=== PATIENT | female | born 1975 | race Caucasian/White ===

== ENCOUNTER 2016-11-02 04:07 | Emergency (ER) | payer BC ==
[~2016-11-02] VITALS: Ht 162.6 cm; Wt 103.1 kg
[~2016-11-02 04:07] MED LIST: CLON0.5T23 PO; LEVO50TA72 PO; METF-186 PO; NORG1TAB4 PO; RANI-198 PO
--- OUTSIDE RECORDS SUMMARY | 2016-11-02 04:11 | XMS REPORT ---
Author Author Paul Ferguson Organization [employer] Address Unknown Phone Unavailable Care Team Providers Care Assembler Small Products Name Role Phone Paul Ferguson CP Unavailable Allergies, Adverse Reactions, Alerts Substance Reaction Event Type Augmentin nausea and vomiting Drug Allergy Problems Problem Type Condition Code Onset Dates Condition Status Problem Anxiety state, unspecified 300.00 Active Problem Unspecified anemia 285.9 Active Problem Diabetes Mellitus Type 2, not stated as uncontrolled 250.00 Active Problem Essential (primary) hypertension I10 Active Problem Allergic rhinitis, unspecified J30.9 Active Problem 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 Problem Type 2 diabetes mellitus without complications E11.9 Active Problem Depressive disorder, not elsewhere classified 311 Active Problem Major depressive disorder, single episode, unspecified F32.9 Active Problem Gastro-esophageal reflux disease without esophagitis K21.9 Active Assessment 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 Assessment Localized swelling, mass and lump, neck R22.1 Active Problem Obesity, unspecified 278.00 Active Problem Esophageal reflux 530.81 Active Problem Allergic rhinitis 477.9 Active Problem Diabetes mellitus without mention of complication, type II or unspecified type, uncontrolled 250.02 Active Problem Depressive disorder, not elsewhere classified 311 Active Problem Esophageal reflux 530.81 Active Medications Medication Code System Code Instructions Start Date End Date Status Dosage Tramadol HCl [facility] [address]-33 50 MG Orally every 6 hrs 1 tablet as needed Omeprazole [facility] [address]-35 40 MG Orally every 12 hours for 21 days. then go back to 40mg orally daily. all refills at 40mg orally daily. November 21, 2014 1 capsule Vistaril [facility] [address]-73 25 MG Orally Three times a day December 23, 2015 1 capsule as needed for acute anxiety Lisinopril [facility] [place] [address]-39 5 MG Orally Once a day Feb 12, 2016 1 tablet Lexapro [facility] [place] [address]-28 10 MG Orally Once a day December 23, 2015 1 tablet Sprintec 28 [facility] [place] [address]-40 0.25-35 MG-MCG Orally Once a day August 12, 2014 1 tablet Zyrtec Allergy [facility] [place] [address]-51 10 MG Orally Once a day Feb 12, 2016 August 10, 2016 1 tablet Metformin HCl [facility] [place] [address]-72 1000 MG Orally Twice a day 1 tablet with meals Levothyroxine Sodium [facility] [place] [address]-17 75 MCG Orally Once a day 1 tablet on an empty stomach in the morning Procedures Procedure Coding System Code Date OFFICE VISIT, EST-LOW COMPLEXITY (15 MIN.) CPT-4 55049 Apr 06, 2016 Vital Signs Date/Time: Apr 06, 2016 Temperature 98.6 F Height 63 in Weight 223.12 lbs Blood Pressure Diastolic 76 mm Hg Blood Pressure Systolic 128 mm Hg Cardiac Monitoring Heart Rate 77 /min BMI 39.52 Index Oximetry 99 % Respiratory Rate 16 /min Results No Known Results Summary Purpose [employer] Submission
--- OUTSIDE RECORDS SUMMARY | 2016-11-02 04:11 | XMS REPORT ---
Author Author Paul Ferguson Organization [employer] Address Unknown Phone Unavailable Care Team Providers Care Data Entry Clerk Name Role Phone Paul Ferguson CP Unavailable Allergies No Known Allergies Problems Problem Type Condition Code Onset Dates Condition Status Problem Esophageal reflux 530.81 Active Problem Diabetes Mellitus Type 2, not stated as uncontrolled 250.00 Active Problem Anxiety state, unspecified 300.00 Active Problem Allergic rhinitis, unspecified J30.9 Active Problem Major depressive disorder, single episode, unspecified F32.9 Active Problem Essential (primary) hypertension I10 Active Problem Depressive disorder, not elsewhere classified 311 Active Problem Unspecified anemia 285.9 Active Problem Gastro-esophageal reflux disease without esophagitis K21.9 Active Problem Type 2 diabetes mellitus without complications E11.9 Active Problem Depressive disorder, not elsewhere classified 311 Active Problem Obesity, unspecified 278.00 Active Problem Esophageal reflux 530.81 Active Problem Allergic rhinitis 477.9 Active Problem Diabetes mellitus without mention of complication, type II or unspecified type, uncontrolled 250.02 Active Medications Medication Code System Code Instructions Start Date End Date Status Dosage Metformin HCl [facility] [address]-16 1000 MG Orally Twice a day 1 tablet with meals Levothyroxine Sodium [facility] [address]-07 75 MCG Orally Once a day 1 tablet on an empty stomach in the morning Results No Known Results Summary Purpose [employer] Submission
--- OUTSIDE RECORDS SUMMARY | 2016-11-02 04:11 | XMS REPORT ---
Author Author Paul Ferguson Organization [employer] Address Unknown Phone Unavailable Care Team Providers Care Dry Cleaning Machine Operator Helper Name Role Phone Paul Ferguson CP Unavailable [...] or unspecified type, uncontrolled 250.02 Active Medications No Known Medications Results No Known Results Summary Purpose [employer] Submission
--- OUTSIDE RECORDS SUMMARY | 2016-11-02 04:11 | XMS REPORT ---
Author Author Paul Ferguson Organization [employer] Address Unknown Phone Unavailable Care Team Providers Care Waste Removalist Name Role Phone Paul Ferguson CP Unavailable [...] 311 Active Problem Obesity, unspecified 278.00 Active Assessment Encounter for immunization Z23 Active Problem Esophageal reflux 530.81 Active Problem Allergic rhinitis 477.9 Active Problem Diabetes mellitus without mention of complication, type II or unspecified type, uncontrolled 250.02 Active Medications Medication Code System Code Instructions Start Date End Date Status Dosage Sprintec 28 [facility] [address]-01 0.25-35 MG-MCG Orally Once a day August 12, 2014 1 tablet Vistaril [facility] [address]-60 25 MG Orally Three times a day December 23, 2015 1 capsule as needed for acute anxiety Omeprazole [facility] [address]-46 40 MG Orally every 12 hours for 21 days. then go back to 40mg orally daily. all refills at 40mg orally daily. November 21, 2014 1 capsule Levothyroxine Sodium [facility] [address]-84 75 MCG Orally Once a day 1 tablet on an empty stomach in the morning Lisinopril [facility] [address]-32 5 MG Orally Once a day Feb 12, 2016 1 tablet Zyrtec Allergy [facility] [address]-06 10 MG Orally Once a day Feb 12, 2016 August 10, 2016 1 tablet Lexapro [facility] [address]-29 10 MG Orally Once a day December 23, 2015 1 tablet Metformin HCl [facility] [address]-15 1000 MG Orally Twice a day 1 tablet with meals Tramadol HCl [facility] [address]-83 50 MG Orally every 6 hrs 1 tablet as needed Procedures Procedure Coding System Code Date ADMINISTRATION, 1ST IMMUNIZATION CPT-4 05301 Apr 02, 2016 DUMMY CODE FOR NURSE VISIT CPT-4 DUMMY Apr 02, 2016 Fluzone/Fluarix IIV4 Pfree (age 3yr & older) CPT-4 15736 Apr 02, 2016 Results No Known Results Immunizations Vaccine Administration Date Fluzone/Fluarix IIV4 Pfree (age 3yr & older) Apr 02, 2016 Summary Purpose [employer] Submission
--- OUTSIDE RECORDS SUMMARY | 2016-11-02 04:11 | XMS REPORT ---
Author Author Sue Ulrich [employer] Address Unknown Phone Unavailable Care Team Providers Care Hot Knife Foxing Cutter Name Role Phone Sue Ulrich CP Unavailable Allergies, Adverse Reactions, Alerts Substance Reaction Event Type Augmentin nausea and vomiting Drug Allergy Problems Problem Type Condition Code Onset Dates Condition Status Problem Unspecified anemia 285.9 Active Problem Type 2 diabetes mellitus without complications E11.9 Active Problem Depressive disorder, not elsewhere classified 311 Active Problem Type 2 diabetes mellitus without complication, without long-term current use of insulin E11.9 Active Assessment Type 2 diabetes mellitus without complication, without long-term current use of insulin E11.9 Active Problem 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 Problem Gastroesophageal reflux disease, esophagitis presence not specified K21.9 Active Problem Major depressive disorder, single episode, unspecified F32.9 Active Problem Gastro-esophageal reflux disease without esophagitis K21.9 Active Problem Essential (primary) hypertension I10 Active Problem Allergic rhinitis, unspecified J30.9 Active Problem Allergic rhinitis 477.9 Active Problem Depressive disorder, not elsewhere classified 311 Active Assessment Cough R05 Active Assessment Gastroesophageal reflux disease, esophagitis presence not specified K21.9 Active Problem Diabetes mellitus without mention of complication, type II or unspecified type, uncontrolled 250.02 Active Problem Esophageal reflux 530.81 Active Problem Obesity, unspecified 278.00 Active Problem Anxiety state, unspecified 300.00 Active Problem Esophageal reflux 530.81 Active Problem Diabetes Mellitus Type 2, not stated as uncontrolled 250.00 Active Medications Medication Code System Code Instructions Start Date End Date Status Dosage Lexapro [facility] [address]-46 10 MG Orally Once a day December 23, 2015 1 tablet Protonix [facility] [address]-19 40 MG Orally Once a day Apr 20, 2016 1 tablet Zyrtec Allergy [facility] [address]-44 10 MG Orally Once a day Feb 12, 2016 August 10, 2016 1 tablet Metformin HCl [facility] [address]-07 1000 MG Orally Twice a day 1 tablet with meals Levothyroxine Sodium [facility] [address]-88 75 MCG Orally Once a day 1 tablet on an empty stomach in the morning Sprintec 28 [facility] [address]-09 0.25-35 MG-MCG Orally Once a day August 12, 2014 1 tablet Procedures Procedure Coding System Code Date OFFICE VISIT, EST-LOW COMPLEXITY (15 MIN.) CPT-4 83103 Apr 20, 2016 Vital Signs Date/Time: Apr 20, 2016 Temperature 98.3 F Height 63 in Weight 224.8 lbs Blood Pressure Diastolic 70 mm Hg Blood Pressure Systolic 122 mm Hg Cardiac Monitoring Heart Rate 75 /min BMI 39.82 Index Oximetry 98 % Results No Known Results Summary Purpose [employer] Submission
--- OUTSIDE RECORDS SUMMARY | 2016-11-02 04:11 | XMS REPORT ---
Author Author Paul Ferguson Organization [employer] Address Unknown Phone Unavailable Care Team Providers Care Sand Mixer Operator Name Role Phone Paul Ferguson CP Unavailable [...]
--- OUTSIDE RECORDS SUMMARY | 2016-11-02 04:11 | XMS REPORT ---
Author Author Paul Ferguson Organization [employer] Address Unknown Phone Unavailable Care Team Providers Care Livestock Counter Name Role Phone Paul Ferguson CP Unavailable [...]
--- OUTSIDE RECORDS SUMMARY | 2016-11-02 04:11 | XMS REPORT ---
Author Author Paul Ferguson Organization [employer] Address Unknown Phone Unavailable Care Team Providers Care Long Wall Shear Operator Name Role Phone Paul Ferguson CP [...] 2 diabetes mellitus without complications E11.9 Active Assessment Thalassemia, unspecified D56.9 Active Assessment Essential (primary) hypertension I10 Active Assessment Proteinuria, unspecified R80.9 Active Problem Depressive disorder, not elsewhere classified 311 Active Problem Obesity, unspecified 278.00 Active Assessment Type 2 diabetes mellitus without complications E11.9 Active Problem Esophageal reflux 530.81 Active Problem Allergic rhinitis 477.9 Active Problem Diabetes mellitus without mention of complication, type II or unspecified type, uncontrolled 250.02 Active Medications Medication Code System Code Instructions Start Date End Date Status Dosage Zyrtec Allergy [facility] [address]-67 10 MG Orally Once a day Feb 12, 2016 August 10, 2016 1 tablet Vistaril [facility] [address]-20 25 MG Orally Three times a day December 23, 2015 1 capsule as needed for acute anxiety Metformin HCl [facility] [address]-88 1000 MG Orally Twice a day 1 tablet with meals Sprintec 28 [facility] [address]-29 0.25-35 MG-MCG Orally Once a day August 12, 2014 1 tablet Lisinopril [facility] [address]-76 5 MG Orally Once a day Feb 12, 2016 1 tablet Levothyroxine Sodium [facility] [address]-53 75 MCG Orally Once a day 1 tablet on an empty stomach in the morning Omeprazole [facility] [address]-77 40 MG Orally every 12 hours for 21 days. then go back to 40mg orally daily. all refills at 40mg orally daily. November 21, 2014 1 capsule Tramadol HCl [facility] [address]-81 50 MG Orally every 6 hrs 1 tablet as needed Lexapro [facility] [address]-46 10 MG Orally Once a day December 23, 2015 1 tablet Procedures Procedure Coding System Code Date IH MicroAlb/Creat Ratio, Urine CPT-4 49951 Feb 24, 2016 BASIC METABOLIC PANEL CPT-4 39947 Feb 24, 2016 IH MicroAlb/Creat Ratio, Urine CPT-4 00892 Feb 24, 2016 COMPLETE CBC W/AUTO DIFF WBC CPT-4 25014 Feb 24, 2016 Results No Known Results Summary Purpose [employer] Submission
[2016-11-02 04:16] VITALS: Ht 162.6 cm; Wt 103.1 kg
--- NOTE | 2016-11-02 04:19 | ERPDOC ---
Departure Impression Impression Referrals: SYD JARAMILLO DO (Family) HPI - Back Pain General Stated Complaint: BACK/ABD PAIN Time Seen by Provider: 04:10 Source: patient HPI - Back Pain Allergies: Coded Allergies: No Known Drug Allergies (Verified Allergy, Unknown, 08/16/08) Past History Past Medical History Metabolic: diabetes, hypercholesterolemia, hypertension, hypothyroidism Female: , miscarriage, para Psychological: anxiety Surgical History General: EGD, gallbladder Vaccines Hx Influenza Vaccination: Yes (had in Dr. Quiroz office) Hx Pneumococcal Vaccination: No Hx Tetanus, Diptheria, Pertuss: Yes Social History Smoking Status: Never smoker Does patient use chewing tobac: No Second Hand Exposure: No Substance Use Type: does not use Alcohol Intake: none Physical Exam General Vitals and Pain Weight: Kilograms: Height (feet): 5 Height (inches): 3.00 Triage Pain Scale: REESE COE MD November 02, 2016 04:19
[2016-11-02] MEDS ORDERED: KETOROLAC 30mg/ml INJECTION IV ONE (04:30)
[2016-11-02] MEDS ORDERED: ONDANSETRON 4mg/2ml INJECTION IV ONE (04:30)
[2016-11-02] MEDS ORDERED: NORMAL SALINE 1,000 ML IV ONE (04:30)
[2016-11-02] MEDS ORDERED: HYDROMORPHONE 2mg/ml INJECTION IV ONE (04:30)
--- NOTE | 2016-11-02 04:36 | ERPDOC ---
Departure Disposition Decision Date: November 02, 2016 Disposition Decision Time: 06:20 Disposition: 01 DISCHARGED HOME, SELF-CARE Impression Impression Impression: Primary Impression: Kidney stone Severity: Severe Condition: Improved Seen By: Physician only Referrals: SYD JARAMILLO DO (Family) Patient Instructions: Kidney Stones (ED) Problems/Meds/Labs Reviewed?: Yes Medications reviewed and manag: Yes Additional Instructions: Ibuprofen 600 mg 4 times daily for baseline pain control (three over the counter tablets) Reglan 10 mg one tablet 4 times daily for nausea and to relax the ureter (tube between kidney and bladder) Crystal 5 mg, one to 2 tablets every 6 hours as needed for pain Strain all your urine to verify passage of the kidney stone See your doctor or Dr. Potter if not improving in 3 days Follow up care ordered?: Yes Mental Status: Alert Scripts Hydrocodone/Acetaminophen (Crystal 5-325 Tablet) 5-325 Tablet 1-2 TAB PO QID Y for PAIN, #30 Prov: REESE COE MD 11/02/16 Metoclopramide HCl (Reglan) 10 Mg Tablet 10 MG PO QID Y for n/v/flank pain , #30 TAB 0 Refills Prov: REESE COE MD 11/02/16 HPI - Abdominal Pain General Chief Complaint: Abdominal Pain Stated Complaint: BACK/ABD PAIN Time Seen by Provider: 04:10 Source: patient, family History/Exam Limitations: language barrier HPI - Abdominal Pain Initial Comments Patient has been having chronic abdominal pain almost daily for 4 months. At 1 AM tonight her pain became much more severe, she presented to the ER. Patient has seen Dr. Sue Ulrich several times for this, and it was thought to be caused by heartburn at the time. Patient has not been taking any medication for heartburn, and has persistently had the pain. Occurred At: home Onset: Rapid Duration: 4-6 hrs Location: LLQ, periumbilical Radiation: back Activities at Onset: none Associated Symptoms: nausea/vomiting, DENIES: back pain, chest pain, diaphoresis, fatigue, fever/chills, headache, heartburn, rash, shortness of breath, swelling/mass in abdomen, syncope, weakness Hx of Similar Symptoms: Yes Allergies: Coded Allergies: No Known Drug Allergies (Verified Allergy, Unknown, 11/02/16) Past History Patient Medical History Problem List Updates: Esophagitis, gastritis, with esophageal atresia Patient Surgical History Distal esophageal dilation Past Medical History Metabolic: diabetes, hypercholesterolemia, hypertension, hypothyroidism Female: , miscarriage, para Psychological: anxiety Vaccines Hx Influenza Vaccination: Yes (had in Dr. Quiroz office) Hx Pneumococcal Vaccination: No Hx Tetanus, Diptheria, Pertuss: Yes Social History Smoking Status: Never smoker Does patient use chewing tobac: No Substance Use Type: does not use Alcohol Intake: none Record Review Pertinent history updated: Yes Review of Systems Constitutional Constitutional: DENIES: appetite decrease, appetite increase, chills, dizziness , fever, weakness ENMT Ears: DENIES: pain Hearing: DENIES: hearing loss, tinnitus Balance: DENIES: vertigo Mouth/Throat: DENIES: change in swallowing, change in voice, hoarsness, painful swallowing, sore throat Cardiovascular Cardiac: DENIES: chest pain, dyspnea on exertion Rhythm/Rate: DENIES: irregular beat, palpitations, tachycardia Vascular: DENIES: pedal edema Pulmonary Respiratory: DENIES: cough, dyspnea, pleuritic chest pain GI Upper Abdomen: nausea, pain, DENIES: dysphagia, heartburn/indigestion, vomiting Lower Abdomen: pain, DENIES: blood in stool, constipation, diarrhea General: DENIES: burning, dysuria, frequency, pain, urgency Musculoskeletal General: DENIES: cramps, joint pain, joint swelling, pain, weakness Integumentary Skin: DENIES: rash, sores Neurological General: DENIES: headache, numbness, tingling, vertigo, weakness Physical Exam General General Nourishment: well nourished Distress Description Patient presents in near hysterics due to abdominal pain General Body Habitus: well groomed Vitals and Pain First Documented Vital Signs Date Time Temp Pulse Resp B/P Pulse Ox O2 Delivery O2 Flow Rate FiO2 11/02/16 04:16 97.5 77 16 182/94 99 Room Air Weight: Kilograms: Height (feet): 5 Height (inches): 3.00 Triage Pain Scale: RN VS reviewed by Provider: Yes Normal Exams: Head: Normocephalic w/o trauma Eyes: Pupils are PERRLA w/ EOMI, No scleral icterus, irritation, or foreign bodies noted ENMT: No facial trauma, nasal exudates, pharyngeal erythema, or exudates are noted Neck: Full range of motion, without adenopathy, JVD, bruits or thyromegaly Chest/Resp: Clear all gibbs, with good airflow, and symmetry bilaterally CV: Regular rate and rhythm, without murmur or gallop, Pulses 2+ all extremities, capillary refill, <2 seconds all ext., no pedal edema noted Lymphatic: No lymphadenopathy, or lymphedema noted Musculoskeletal: No tenderness, or deformity noted, good range of motion, all extremities Integumentary: No rashes, hives, or bruising noted, hair and nails, without abnormality Neurologic: Patient is alert, and oriented, cranial nerves, motor/sensory/ cerebellar, exams w/o gross deficits, to observation Psychiatric: Patient exhibits, appropriate attention, emotion and affect Abdomen (brief) Abdominal Brief: FOUND: bowel normo active x4, soft, tender (mild diffuse periumbilical tenderness, no rebounding no guarding no distention or masses), NOT FOUND: distended, hepatosplenomegaly, pulsatile mass Progress Results/Orders Orders Procedure Category Date Status Time Iv Lock (Ed Only) EDM 11/02/16 Transmitted 04:26 Cbc W/Auto LAB 11/02/16 Complete Diff-Reflex Manual Cmp - Comprehensive LAB 11/02/[address] Abd/Pelvis CT 11/02/16 Taken W/Contrast Only 04:26 Lipase LAB 11/02/16 Complete LAB 11/02/16 Complete Qualitative, Urine 04:26 Hydromorphone PHA 11/02/16 Complete (Dilaudid) 04:30 Ondansetron Inj PHA 11/02/16 Complete (Zofran) 04:30 Ketorolac (Toradol) PHA 11/02/16 Complete 04:30 Normal Saline (Normal PHA 11/02/16 Complete Saline Iv) 04:30 UA, LAB 11/02/16 Complete Dip&Micro(Complete) & 04:45 Iohexol (Omnipaque) PHA 11/02/16 Complete 05:18 Normal Saline (Ns) PHA 11/02/16 Complete 05:19 Saline Flush (Iv PHA 11/02/16 Complete Flush) 05:19 Hydrocodone/Apap PHA 11/02/16 Complete 5/325 Prepack (Crystal 5 06:15 Metoclopramide PHA 11/02/16 Complete (Reglan) 06:15 Lab Results Laboratory Tests Test 11/02/16 04:44 11/02/16 04:45 White Blood Count 17.1T/MM3 Red Blood Count 5.68M/MM3 Hemoglobin 12.8GM/DL Hematocrit 39.7% Mean Corpuscular Volume 69.9UM3 Mean Corpuscular Hemoglobin 22.5UUG Mean Corpuscular Hemoglobin Concent 32.2GM/DL RDW Standard Deviation 36.9FL Platelet Count 325T/MM3 Mean Platelet Volume 11.5UM3 Immature Granulocyte % (Auto) % Neutrophils (%) (Auto) % Lymphocytes (%) (Auto) % Monocytes (%) (Auto) % Eosinophils (%) (Auto) % Basophils (%) (Auto) % Absolute Immature Granulocyte (auto T/MM3 Absolute Neutrophils (auto) T/MM3 Absolute Lymphocytes (auto) T/MM3 Absolute Monocytes (auto) T/MM3 Absolute Eosinophils (auto) T/MM3 Absolute Basophils (auto) T/MM3 Neutrophils % (Manual) 77.0% Band Neutrophils % 2.0% Lymphocytes % (Manual) 20.0% Monocytes % (Manual) 1.0% Absolute Neutrophils (Manual) 13.2T/MM3 Band Neutrophils # 0.3T/MM3 Lymphocytes # (Manual) 3.4T/MM3 Monocytes # (Manual) 0.2T/MM3 Red Cell Morphology Comment Normal Turbidity < 20 Sodium Level 147MEQ/L Potassium Level 4.2MEQ/L Chloride Level 106MEQ/L Carbon Dioxide Level 26MEQ/L Anion Gap 15MEQ/L Blood Urea Nitrogen 11.0MG/DL Creatinine 0.5MG/DL Glomerular Filtration Rate Calc 135 BUN/Creatinine Ratio 22RATIO Glucose Level 162MG/DL Calculated Osmolality 285MOSM/KG Calcium Level 9.1MG/DL Total Bilirubin 0.60MG/DL Icterus Index < 2 Aspartate Amino Transf (AST/SGOT) 22U/L Alanine Aminotransferase (ALT/SGPT) 53U/L Alkaline Phosphatase 76U/L Total Protein 7.4G/DL Albumin 4.5G/DL Globulin 2.9G/DL Albumin/Globulin Ratio 1.6RATIO Lipase 117U/L Chemistry Specimen Hemolysis < 15 Urine Collection Type Cleancatch-midstream Urine Color Yellow Urine Turbidity Slt cldy Urine pH 5.5 Urine Specific Riva 1.015 Urine Protein Negative Urine Glucose (UA) Negative Urine Ketones 1+ Urine Blood 3+ Urine Nitrite Negative Urine Bilirubin Negative Urine Urobilinogen NormalEU/DL Urine Leukocyte Esterase Negative Urine RBC 20-30/HPF Urine WBC 0-1/HPF Urine Bacteria None seen Urine Culture Indicated Cult not indicated Urine Test Negative Medications Current ED Medications Hydromorphone HCl (Dilaudid) 0.5 mg O ONCE IV Last administered on 11/02/16 04:49; Start 11/02/16 at 04:30; Stop 11/02/16 at 04:31; Status DC Ondansetron HCl (Zofran) 4 mg O ONCE IV Last administered on 11/02/16 04:50; Start 11/02/16 at 04:30; Stop 11/02/16 at 04:31; Status DC Ketorolac Tromethamine 30 mg 30 mg O ONCE IV Last administered on 11/02/16 04 :49; Start 11/02/16 at 04:30; Stop 11/02/16 at 04:31; Status DC Sodium Chloride (Normal Saline IV) 1,000 ml @ 0 mls/hr Q0M ONCE IV Last administered on 11/02/16 04:49; Start 11/02/16 at 04:30; Stop 11/02/16 at 04:31 ; Status DC Iohexol 1 bottle 1 bottle STK-MED ONCE .ROUTE ; Start 11/02/16 at 05:18; Stop at 05:19; Status DC Sodium Chloride (NS) 100 ml @ As Directed STK-MED ONCE .ROUTE ; Start 11/02/16 at 05:19; Stop 11/02/16 at 05:20; Status DC Sodium Chloride (Iv Flush) 10 ml STK-MED ONCE .ROUTE ; Start 11/02/16 at 05:19; Stop 11/02/16 at 05:20; Status DC Acetaminophen/ Hydrocodone Bitart (NORCO 5 (PrePack)) 1 pack O ONCE SENT HOME ; Start 11/02/16 at 06:15; Stop 11/02/16 at 06:16; Status DC Metoclopramide HCl (Reglan) 10 mg O ONCE PO ; Start 11/02/16 at 06:15; Stop at 06:16; Status DC Progress Progress Patient given Zofran 4 mg, Dilaudid 0.5 mg, Toradol 30 mg, and 1 L normal saline IV fluid bolus - to relief CBC - moderate elevated white blood cell count, minimal left shift CMP/L - normal UA/P - normal, with red blood cells, consistent with menses CT A/P - 7.5 x 5.5 mm ureteral stone distal left ureter causing hydroureter and hydronephrosis Pain is well relieved, patient is given Reglan one tablet here, Crystal prescription, Reglan prescription, and is to follow-up with her primary physician or Dr. Potter. REESE COE MD November 02, 2016 04:35
--- NOTE | 2016-11-02 04:42 | NUR ---
BR PT AMBULATES TO BR AT THIS TIME.
[2016-11-02 04:49] LABS: HCT - HEMATOCRIT 39.7 % (36-46); HGB - HEMOGLOBIN 12.8 GM/DL (12-16); MEAN CORPUSCULAR HGB 22.5 UUG (26-34); MEAN CORPUSCULAR HGB CONC(MCHC 32.2 GM/DL (31-37); MEAN CORPUSCULAR VOLUME 69.9 UM3 (80-100); MEAN PLATELET VOLUME 11.5 UM3 (9.4-12.4); RED BLOOD COUNT 5.68 M/MM3 (4.00-5.20); WBC - WHITE BLOOD COUNT 17.1 T/MM3 (4.5-11.0)
[2016-11-02 05:01] LABS: ALBUMIN 4.5 G/DL (3.5-5.0); ALBUMIN/GLOBULIN RATIO 1.6 RATIO (1.1-2.2); ALKALINE PHOSPHATASE 76 U/L (38-126); ALT (SGPT) 53 U/L (9-52); ANION GAP 15 MEQ/L (5-15); AST (SGOT) 22 U/L (14-36); BUN/CREATININE RATIO 22 RATIO (6-26); CALCIUM 9.1 MG/DL (8.4-10.2); CHLORIDE 106 MEQ/L (98-107); CO2 - CARBON DIOXIDE 26 MEQ/L (22-30); CREATININE 0.5 MG/DL (0.7-1.2); GLOMERULAR FILTRATION RATE 135; GLUCOSE 162 MG/DL (65-110); LIPASE 117 U/L (23-300); POTASSIUM 4.2 MEQ/L (3.6-5); SODIUM 147 MEQ/L (134-144); TOTAL PROTEIN 7.4 G/DL (6.3-8.2)
[2016-11-02] MEDS ORDERED: PANT40SU PO (05:10)
[2016-11-02] MEDS ORDERED: LISI-625 PO (05:10)
[2016-11-02] MEDS ORDERED: CETI-269 PO (05:10)
[2016-11-02] MEDS ORDERED: NORG1TAB12 PO (05:10)
[2016-11-02] MEDS ORDERED: NAPR500T6 PO (05:10)
[2016-11-02 05:15] LABS: BLOOD, URINE 3+ (NEGATIVE); COLOR,URINE YELLOW (YELLOW); LEUKOCYTE ESTERASE ,URINE NEGATIVE (NEGATIVE); NITRITE,URINE NEGATIVE (NEGATIVE); UROBILINOGEN,URINE NORMAL (NORMAL)
[2016-11-02] MEDS ORDERED: IOHEXOL 300 MG/ML 100ml INJECTION ONE (05:18)
[2016-11-02] MEDS ORDERED: NORMAL SALINE 100 ML ONE (05:19)
[2016-11-02] MEDS ORDERED: SALINE FLUSH 10ml SYRINGE ONE (05:19)
--- NOTE | 2016-11-02 05:20 | NUR ---
STATUS PT DENIES ANY NAUSEA, REPORTS PAIN IS NOW 1/10.
[2016-11-02 05:21] LABS: WBC,URINE 0-1 /HPF (0-5)
[2016-11-02 05:22] LABS: BACTERIA,URINE NONE SEEN (NEGATIVE); RBC,URINE 20-30 /HPF (0-3)
--- NOTE | 2016-11-02 05:24 | NUR ---
IMAGING PT LEAVES WITH IMAGING STAFF AT THIS TIME.
[2016-11-02 05:26] LABS: BAND NEUTROPHILS # 0.3 T/MM3; LYMPHOCYTES # (MANUAL) 3.4 T/MM3 (1-4.8); MONOCYTES # (MANUAL) 0.2 T/MM3 (0-0.8); NEUTROPHILS #(MANUAL)-ABSOLUTE 13.2 T/MM3 (1.8-7.7); TOTAL CELLS COUNTED 100 %
--- NOTE | 2016-11-02 05:46 | NUR ---
RETURN PT RETURNS TO ROOM AT THIS TIME.
--- NOTE | 2016-11-02 06:07 | NUR ---
REPORT GIVEN TO MONIKA BUSH RN AT THIS TIME.
[2016-11-02] MEDS ORDERED: HYDROCODONE/APAP 5/325 (PrePack) SENT HOME ONE (06:15)
[2016-11-02] MEDS ORDERED: HYDR-4246 PO (06:23)
[2016-11-02] MEDS ORDERED: METO-230 PO (06:23)
[2016-11-02 06:57] VITALS: BP 124/68; PULSE 66; RESP 16; TEMP 98.2; O2SAT 96
--- NOTE | 2016-11-02 06:57 | NUR ---
DISMISSAL PT HAS SOME NAUSEA. MED GIVEN. INSTRUCTIONS REVIEWED WITH WHO INTERPRETED FOR PT. THEY VERBALIZE UNDERSTANDING. DISCHARGED AMB W
--- NOTE | 2016-11-02 07:25 | DI ---
Indication: ITS.REASON: severe progressive periumbilical pain PROCEDURE: CT ABD/PELVIS W/CONTRAST ONLY: Encounter: Initial Comparison: None Technique: Axial CT images were performed through the abdomen and pelvis after the administration of intravenous contrast. Coronal and sagittal two-dimensional reformats. Automated Exposure Control and Iterative Reconstruction dose reducing techniques were utilized. Contrast: Omnipaque 300 98 mL Findings: The lung bases are clear. The liver is within normal limits. The gallbladder is surgically absent. The spleen, pancreas and adrenal glands are within normal limits. Right kidney shows tiny low-attenuation foci which are too small to definitively characterize. The left kidney shows mild hydronephrosis with slight perinephric stranding. There is left hydroureter to the level of an obstructing 8 mm ureteral stone just beyond the crossing of the pelvic vessels. The bladder is normal. Uterus and ovaries are normal. No free fluid. No evidence of a bowel obstruction. Occasional fluid-filled nondilated small bowel loops. The appendix is normal. Bone windows show no acute findings. Impression: Obstructing 8 mm left distal ureteral stone. There is a preliminary report by [employer]. .
== END 2016-11-02 06:57 | disposition home or self-care (01) ==
LOC: ED 04:07
DX: N13.2 Hydronephrosis with renal and ureteral calculous obstruction (principal)
CPT/HCPCS: 36415; 74177; 80053; 81001; 81025; 83690; 85025; 96361; 96374; 96375; 99284; J1170; J1885; J2405; J7030; J7050; Q9967